=== PATIENT | female | born 1960 | race Two or more races ===

== ENCOUNTER → 2024-04-24 | Outpatient (CLI) | payer BC, SELFPAY ==
--- NOTE | 2024-04-24 14:58 | XR_ITS ---
Examination:Right hip AP, lateral, AP pelvis 3 views Technique: Hip AP lateral, AP pelvis, 3 views Exam date and time:April 24, 2024 1502 hours INDICATIONS: Right hip pain beginning one month ago. FINDINGS: Moderate osteopenia Partial visualization prominent lumbar levoscoliosis [id number] bilateral hip osteoarthritis Greater trochanteric bursitis right hip No right hip fracture or dislocation Left hip bones of the pelvis intact IMPRESSION: Mild to moderate bilateral hip osteoarthritis Greater trochanteric bursitis right.
== END | disposition home or self-care (01) ==
LOC: CDIM 14:52
PROVIDERS: PCP Family Medicine; Referring Provider Physician Assistant; Visit Provider Physician Assistant
DX: M16.0 Bilateral primary osteoarthritis of hip (principal); M70.61 Trochanteric bursitis, right hip
CPT/HCPCS: 73502

== ENCOUNTER → 2024-05-02 | Outpatient (CLI) | payer BC, SELFPAY ==
--- NOTE | 2024-05-02 15:22 | XR_ITS ---
Examination: Lumbar spine, 5 views Technique: Lumbar spine AP, lateral, coned lateral lower lumbar spine, bilateral obliques 5 views Exam date and time: May 02, 2024 1634 hours INDICATIONS: Low back pain beginning 2 months ago FINDINGS: Prominent osteopenia Lumbar levoscoliosis 34 degrees Diffuse advanced facet arthropathy No lumbar fracture Moderate lumbar spondylosis Diffuse lumbar disc narrowing advanced L1-L2, L2-L3, L3-L4, L5-S1 IMPRESSION: Diffuse lumbar degenerative disc disease, advanced L1-L2, L2-L3, L3-L4, L5-S1 with spinal stenosis
== END | disposition home or self-care (01) ==
PROVIDERS: PCP Nurse Practitioner Family; Referring Provider Nurse Practitioner Family; Visit Provider Nurse Practitioner Family
DX: M51.369 Other intervertebral disc degeneration, lumbar region without mention of lumbar back pain or lower extremity pain (principal); M48.061 Spinal stenosis, lumbar region without neurogenic claudication; M51.379 Other intervertebral disc degeneration, lumbosacral region without mention of lumbar back pain or lower extremity pain; M48.07 Spinal stenosis, lumbosacral region
CPT/HCPCS: 72110

== ENCOUNTER → 2024-05-14 | Outpatient (CLI) | payer BC, SELFPAY ==
--- NOTE | 2024-05-14 | XR_ITS ---
Examination: Knee, right , 3 views Technique: Knee AP, lateral, oblique 3 views Date and time of exam: May 14, 2024 1230 hours INDICATIONS: Right knee pain post arthroplasty 4 months ago FINDINGS: Total right knee arthroplasty. Satisfactory alignment compared with 02/03/2024 Moderate osteopenia No fracture IMPRESSION: Total right knee arthroplasty with satisfactory alignment
== END | disposition home or self-care (01) ==
PROVIDERS: PCP Nurse Practitioner Family; Referring Provider Orthopaedic Surgery; Visit Provider Orthopaedic Surgery
DX: M25.561 Pain in right knee (principal); Z96.651 Presence of right artificial knee joint
CPT/HCPCS: 73562

== ENCOUNTER → 2024-05-17 | Outpatient (CLI) | payer BC, SELFPAY ==
--- NOTE | 2024-05-17 10:36 | XR_ITS ---
Examination:Right hip AP, lateral, AP pelvis 3 views Technique: Hip AP lateral, AP pelvis, 3 views Exam date and time:May 17, 2024 1151 hours INDICATIONS: Right hip pain and stiffness beginning 45 days ago FINDINGS: Severe osteopenia Mild bilateral hip osteoarthritis No right or left hip fracture or dislocation Greater trochanteric bursitis right hip IMPRESSION: Severe osteopenia Mild bilateral hip osteoarthritis Greater trochanteric bursitis right hip
== END | disposition home or self-care (01) ==
PROVIDERS: PCP Nurse Practitioner Family; Referring Provider Orthopaedic Surgery; Visit Provider Orthopaedic Surgery
DX: M85.88 Other specified disorders of bone density and structure, other site (principal); M16.0 Bilateral primary osteoarthritis of hip; M70.61 Trochanteric bursitis, right hip
CPT/HCPCS: 73502

== ENCOUNTER → 2024-06-15 | Outpatient (CLI) | payer BC, SELFPAY ==
--- NOTE | 2024-06-15 07:00 | XR_ITS ---
Examination: MRI right hip without intravenous contrast. Date and time of exam: June 15, 2024 1857 hrs. Indications: Right groin pain right hip pain joint locking stiffness 2 months Technique: Multiple MRI images of the right hip have been obtained T1 weighted coronal sections, TR 500, TE 12 Proton density coronal fat saturated images, TR 3000, TE 71 T2-weighted coronal images, 5850, TE 104 T1-weighted axial images, TR 521, TE 12 T2-weighted axial fat suppressed images, TR 5730, TE 103. Findings: Moderate right hip osteoarthritis Serpiginous abnormal signal occupying more than 50% of the right femoral head Marrow edema in the femoral head and neck region No occult fracture No labral tear Left hip bones of the pelvis intact No pelvic mass Impression: Moderate right hip osteoarthritis Significant avascular necrosis right femoral head
== END | disposition home or self-care (01) ==
PROVIDERS: Referring Provider Orthopaedic Surgery; Visit Provider Orthopaedic Surgery
DX: M16.11 Unilateral primary osteoarthritis, right hip (principal); M87.851 Other osteonecrosis, right femur
CPT/HCPCS: 73721